=== PATIENT | male | born 1990 | race Caucasian/White ===

== ENCOUNTER 2017-02-13 21:10 | Emergency (ER) | payer SELFPAY ==
[~2017-02-13] VITALS: Ht 167.6 cm; Wt 66.0 kg
[2017-02-13 21:12] VITALS: BP 129/71; PULSE 94; RESP 16; TEMP 99.1; O2SAT 100
--- NOTE | 2017-02-13 21:53 | PD ---
HPI Chief Complaint: Injury Time Seen by Provider: 21:51 Travel History International Travel<30 days: No Contact w/Intl Traveler<30days: No Traveled to known affect area: No History of Present Illness HPI 27-year-old white male presents to emergency department with complains of right great toe pain. [facility] [employer] [facility] [place] [facility] he injured his right great toe on a climbing wall. He states that his toe is now painful and angulated. This occurred just prior to arrival. Pain is [id number]. No sensory changes. No other injury. PFSH Past Medical History Medical History: Denies Significant Hx Tetanus Vaccination: < 5 Years Past Surgical History Surgical History: No Previous Surgery Social History Alcohol Use: No Tobacco Use: No Allergies-Medications (Allergen,Severity, Reaction): Coded Allergies: No Known Allergies (Unverified , 02/13/17) Reported Meds & Prescriptions Reported Meds & Active Scripts Active Ibuprofen 600 Mg Tab 600 Mg PO Q6H PRN Lortab (Hydrocodone-Acetaminophen) 5-325 Mg Tab 1 Tab PO Q4H PRN Review of Systems Except as stated in HPI: all other systems reviewed are Neg Physical Exam Narrative GENERAL: This is a well-nourished, well-developed patient, in no apparent distress. SKIN: No rashes, ecchymoses or lesions. Warm and dry. HEAD: Atraumatic. Normocephalic. EYES: PERRL, EOMI, no discharge or injection. No scleral icterus. EARS: Clear NOSE: Nasal turbinates appear normal. THROAT: Mucosa pink and moist. Airway patent. NECK: Trachea midline. supple, moves head freely. LUNGS: Clear to auscultation. CV: Regular in rhythm. ABDOMEN: Soft nontender. EXT: No clubbing cyanosis or edema. Examination of the right foot reveals tenderness to the base of the great right toe. There is no pain in the second through fifth toe. The forefoot, heel and Achilles are normal. Remainder extremity is unremarkable. Skin is intact. No ecchymosis. Data Data Last Documented VS Vital Signs Date Time Temp Pulse Resp B/P Pulse Ox O2 Delivery O2 Flow Rate FiO2 02/13/17 21:12 99.1 94 16 129/71 100 Room Air Orders Toe (Min 2vws) (02/13/17 21:46) Ice/Cold Pack (02/13/17 21:46) Acetamin-Hydrocod 325-5 Mg ([place] 5-325 (02/13/17 22:30) Ibuprofen (Motrin) (02/13/17 22:30) Splint Or Brace Apply/Monitor (02/13/17 22:22) Crutches (02/13/17 22:22) Radiology Film Requests (02/13/17 ) [facility] Medical Decision Making Medical Screen Exam Complete: Yes Emergency Medical Condition: Yes Medical Record Reviewed: Yes Interpretation(s) Last 24 hours Impressions Toe X-Ray 02/13/17 1846 Signed Impressions: Service Date/Time: Monday, February 13, 2017 22:03 - CONCLUSION: Comminuted intra-articular fracture distally of the great toe proximal phalanx. Jeff Chamberlain MD Differential Diagnosis MDM: High Differential diagnoses: Fracture, sprain, strain, dislocation, contusion, neurovascular injury Narrative Course Patient's x-ray reveals a comminuted fracture of the great toe. He is placed in a posterior short leg splint, crutches, Lortab 5 a grams by mouth and ice pack. Diagnosis Primary Impression: Fracture of right great toe Patient Instructions: General Instructions Additional Instructions: Rest. Elevation. Ice packs for the next 3 days. Isael wrap and crutches. No weight-bearing. Medications as directed Follow-up with an orthopedist or motors and generators inspector in 3-7 days. Return to the ER if any problems Med/Other Pt SpecificInfo: Prescription(s) given Scripts Ibuprofen 600 Mg [id number] Mg PO Q6H PRN (Pain/Inflammation) #40 TAB Prov:Ja Ayala MD 02/13/17 Hydrocodone-Acetaminophen (Lortab)5-325 Mg Tab1 Tab PO Q4H PRN (PAIN) #20 TAB Prov:Ja Ayala MD 02/13/17 Disposition: 01 DISCHARGE HOME Condition: Stable Ramu Meredith Feb 13, 2017 21:53
--- NOTE | 2017-02-13 22:15 | RADRPT ---
EXAM DATE/TIME: 02/13/2017 22:03 [facility] COMPARISON: No previous studies available for comparison. INDICATIONS : Right great toe pain after patient rolled his foot jumping on a trampoline MEDICAL HISTORY : None. SURGICAL HISTORY : None. ENCOUNTER: Initial ACUITY: 1 day PAIN SCORE: 6/10 LOCATION: Right great toe FINDINGS: There is a comminuted fracture involving the distal half of the great toe proximal phalanx, intra-art icular at the interphalangeal joint. There is mild incongruity of the articular surface of the head o f the proximal phalanx. There is also mild dorsal angulation deformity. There is a potential nondispl aced fracture of the lateral corner of the base of the distal phalanx. No subluxation. CONCLUSION: Comminuted intra-articular fracture distally of the great toe proximal phalanx. Jeff Chamberlain MD on February 13, 2017 at 22:11 Board Certified Radiologist. This report was verified electronically.
[2017-02-13] MEDS ORDERED: IBUP-232 PO (22:24)
[2017-02-13] MEDS ORDERED: HYDR-3533 PO (22:24)
[2017-02-13] MEDS ORDERED: IBUPROFEN 600 MG TAB PO ONE (22:30)
[2017-02-13] MEDS ORDERED: ACETAMINOPHEN/HYDROcodone 325 MG/5 MG TAB PO ONE (22:30)
== END 2017-02-13 23:10 | disposition home or self-care (01) ==
LOC: NEPK 21:10
DX: S92.421A Displaced fracture of distal phalanx of right great toe, initial encounter for closed fracture (principal); W22.8XXA Striking against or struck by other objects, initial encounter
CPT/HCPCS: 29515; 73660; 99283; E0113